=== PATIENT | female | born 1945 | race Hispanic/Latino ===

== ENCOUNTER 2023-05-03 06:05 | Observation (INO) | payer MEDICARE ==
[2023-04-29 14:50] VITALS: BP 135/69; PULSE 61; RESP 12
[~2023-05-03] VITALS: Ht 162.6 cm; Wt 74.5 kg
[2023-05-03] VITALS (32 sets, daily range): BP systolic 110–148; BP diastolic 45–74; PULSE 47–68; RESP 14–20; O2SAT 100
[~2023-05-03 06:05] MED LIST: ATOR10 PO
[2023-05-03] MEDS ORDERED: CEFAZOLIN SODIUM 2 GM VIAL ONE (06:15)
[2023-05-03] MEDS ORDERED: LACTATED RINGERS 1000ML 1,000 ML IV ONE (06:15)
[2023-05-03] MEDS ORDERED: ROSU10TA28 PO (06:38)
[2023-05-03] MEDS ORDERED: FENTANYL CITRATE PF 50 MCG/1 ML 2ML VIAL ONE ×3 (07:02→09:43)
[2023-05-03] MEDS ORDERED: PROPOFOL 10 MG/ML 20ML VIAL IV ONE (07:02)
[2023-05-03] MEDS ORDERED: MIDAZOLAM HCL 1 MG/ML 2ML VIAL ONE (07:02)
[2023-05-03] MEDS ORDERED: ROCURONIUM 10MG/1ML SYR 10 MG/ML ML ONE (07:12)
[2023-05-03] MEDS ORDERED: PHENYLEPHRINE HCL 10 MG/ML 1ML VIAL IV ONE (07:12)
[2023-05-03] MEDS ORDERED: TRANEXAMIC ACID 1000MG/10ML ONE (07:16)
[2023-05-03] MEDS ORDERED: ONDANSETRON 4MG INJ ONE (07:20)
[2023-05-03] MEDS ORDERED: ROPIVACAINE 0.5% 5MG/ML 30ML IJ ONE (07:21)
[2023-05-03] MEDS ORDERED: LIDOCAINE 2%-EPI 1:200,000 20 ML VIAL IJ ONE (07:21)
[2023-05-03] MEDS ORDERED: DEXAMETHASONE SOD PHOSPHATE 10MG/ML 1ML VIAL ONE (07:36)
[2023-05-03] MEDS ORDERED: POTASSIUM CHLORIDE 10% ELIXIR 20 MEQ/15 ML UDCUP PO PRN (08:00)
[2023-05-03] MEDS ORDERED: POTASSIUM CHLORIDE 20MEQ/100ML 100 ML IV PRN (08:00)
[2023-05-03] MEDS ORDERED: ONDANSETRON 4MG INJ IVP PRN (08:00)
[2023-05-03] MEDS ORDERED: KCL 20 MEQ ERTAB PO PRN (08:00)
[2023-05-03] MEDS: POLYETHYLENE GLYCOL 3350 17 GM POWD.PACK PO SCH (09:00)
[2023-05-03] MEDS: ASPIRIN 81 MG EC TAB PO SCH ×2 (09:00→20:40)
[2023-05-03] MEDS: FAMOTIDINE 20MG TAB PO SCH ×2 (09:00→20:40)
[2023-05-03] MEDS ORDERED: GLYCOPYRROLATE 1 MG/5 ML SYRINGE ONE (09:43)
[2023-05-03] MEDS ORDERED: NEOSTIGMINE 5MG/5ML SYR IV ONE (09:43)
[2023-05-03] MEDS: ACETAMINOPHEN 1,000 MG/100 ML VIAL IV SCH ×3 (10:11→20:37)
[2023-05-03] MEDS ORDERED: MEPERIDINE-PF 25 MG/ML SYG ONE ×2 (10:39→10:51)
[2023-05-03] MEDS: HYDROCODONE/ACETAMINOPHEN 10/325 MG TAB PO PRN ×3 (11:22→20:40)
[2023-05-03] MEDS: CEFAZOLIN SODIUM 1 GM VIAL IVPB SCH ×2 (12:51→20:39)
[2023-05-03] MEDS: IBUPROFEN 800MG + NS 250ML IV SCH ×2 (13:05→18:52)
[2023-05-03] MEDS: 0.9%NACL 1000ML 1,000 ML IV SCH ×2 (15:18→18:10)
[2023-05-04] VITALS (7 sets, daily range): BP systolic 101–150; BP diastolic 47–70; PULSE 48–72; RESP 16–20; O2SAT 93
[2023-05-04] MEDS: IBUPROFEN 800MG + NS 250ML IV SCH (02:08)
[2023-05-04] MEDS: HYDROCODONE/ACETAMINOPHEN 5/325 MG TAB PO PRN ×2 (02:11→10:26)
[2023-05-04] MEDS: 0.9%NACL 1000ML 1,000 ML IV SCH (04:00)
[2023-05-04 04:11] LABS: MEAN CORPUSCULAR HEMOGLOBIN 30.2 pg (27.0-33.0); MEAN CORPUSCULAR HGB CONC 33.4 g/dL (32.0-36.0); MEAN CORPUSCULAR VOLUME 90.2 fL (79-99); RED BLOOD CELL COUNT(AUTO) 3.88 MIL/uL (4.00-5.50); RED CELL DISTRIBUTION WIDTH 12.3 % (11.0-15.5); WHITE BLOOD COUNT (AUTO) 8.5 K/uL (4.8-10.8)
[2023-05-04 04:34] LABS: CREATININE 0.8 mg/dL (0.5-1.5); POTASSIUM 3.8 mmol/L (3.5-5.1)
[2023-05-04] MEDS: ASPIRIN 81 MG EC TAB PO SCH ×2 (09:08→20:41)
[2023-05-04] MEDS: FAMOTIDINE 20MG TAB PO SCH ×2 (09:08→20:41)
[2023-05-04] MEDS: POLYETHYLENE GLYCOL 3350 17 GM POWD.PACK PO SCH (09:09)
[2023-05-04] MEDS: MORPHINE 4 MG SYG IVP PRN ×2 (12:44→20:41)
[2023-05-04] MEDS: HYDROCODONE/ACETAMINOPHEN 10/325 MG TAB PO PRN (18:03)
[2023-05-05] MEDS: HYDROCODONE/ACETAMINOPHEN 10/325 MG TAB PO PRN (02:01)
[2023-05-05 03:30] VITALS: BP 128/62; PULSE 66; RESP 18
[2023-05-05 07:50] VITALS: O2SAT 98
[2023-05-05 08:00] VITALS: BP 134/59; PULSE 68; RESP 17
[2023-05-05] MEDS: ASPIRIN 81 MG EC TAB PO SCH (09:39)
[2023-05-05] MEDS: POLYETHYLENE GLYCOL 3350 17 GM POWD.PACK PO SCH (09:39)
[2023-05-05] MEDS: FAMOTIDINE 20MG TAB PO SCH (09:39)
[2023-05-05] MEDS: HYDROCODONE/ACETAMINOPHEN 5/325 MG TAB PO PRN ×2 (09:45→13:43)
[2023-05-05 11:50] VITALS: BP 113/67; PULSE 66; RESP 17
[2023-05-06] MEDS ORDERED: BISACODYL 10 MG SUPP.RECT RC PRN (08:00)
== END 2023-05-05 15:00 | disposition home health service (06) ==
LOC: DAH 06:05 → DAHIP 06:06 → DAH 06:06 → 4AH 15:10
PROVIDERS: ADMIT Orthopaedic Surgery; ATTEND Orthopaedic Surgery
DX: M17.12 Unilateral primary osteoarthritis, left knee (principal); Z20.822 Contact with and (suspected) exposure to COVID-19; G89.18 Other acute postprocedural pain; E78.00 Pure hypercholesterolemia, unspecified; E78.5 Hyperlipidemia, unspecified; Z79.899 Other long term (current) drug therapy
CPT/HCPCS: 87426; 87641; 73700; 96376 ×2; 96365; 96366 ×2; 96375 ×2; 96367; 97039 ×6; 64447; 27447; 97161; 80048; 85027; 36415; 73562; 97116 ×4; A6260; G0378 ×51; A4600; C1713; A4663; J7030; J7120 ×2; J3010 ×3; J0690 ×3; J3490 ×3; J1100; J2710; J2250; J2704; J2405 ×2; J2175 ×2; J2795; J2371; J1741 ×3; A6223; G0168; A4649 ×3; A6212; C1776 ×4; A5120; A4215; A4223; A4222; A4221; A6450; J2270 ×2